=== PATIENT | female | born 1980 | race Hispanic/Latino ===

== ENCOUNTER 2021-05-16 01:26 | Emergency (ER) | payer SELFPAY ==
[~2021-05-16] VITALS: Ht 162.6 cm; Wt 81.6 kg
[2021-05-16] MEDS ORDERED: METHYLPREDNISOLONE ACETATE 80 MG/ML VIAL ONE (01:42)
[2021-05-16] MEDS ORDERED: METHYLPREDNISOLONE ACETATE 80 MG/ML VIAL IM ONE (01:45)
== END 2021-05-16 02:00 | disposition home or self-care (01) ==
LOC: ER 01:34
DX: J32.9 Chronic sinusitis, unspecified (principal); F17.210 Nicotine dependence, cigarettes, uncomplicated
CPT/HCPCS: 99282; J1040